=== PATIENT | female | born 1960 | race Caucasian/White ===

== ENCOUNTER → 2023-11-01 08:29 | Outpatient (REF) | payer OTHER, SELFPAY ==
[2023-11-01 11:22] LABS: ALT (SGPT) 33 U/L (0-35); AST (SGOT) 38 U/L (14-36); Creatine Phosphokinase 85 U/L (30-135); Total Cholesterol 203 mg/dl (50-199); Triglyceride 115 mg/dl (10-149); Very Low Density Lipoprotein 23 mg/dl (0-30)
[2023-11-01 11:36] LABS: HDL Cholesterol 127 mg/dl; LDL Cholesterol, Calculated 53 mg/dl
== END ==
LOC: REG 08:29
PROVIDERS: ATTENDING PHYSICIAN Internal Medicine Clinical Cardiac Electrophysiology
DX: E78.2 Mixed hyperlipidemia (principal)
CPT/HCPCS: 80061; 82550; 84450; 84460